=== PATIENT | female | born 1945 | race Caucasian/White ===

== ENCOUNTER → 2021-10-23 13:12 | Outpatient (CLI) | payer MEDICARE, SELFPAY ==
--- NOTE | ~2021-10-23 | US_ITS ---
EXAMINATION: US pelvic limited DATE: 10/23/2021 13:57 INDICATION: Overactive bladder . TECHNIQUE: Grayscale and Doppler ultrasound images of the bladder were obtained. COMPARISON: None. FINDINGS: The bladder is only partially distended. No definite wall thickening, noting that this dete rmination somewhat limited without a fully distended bladder. Prevoid volume 22 mL. Post void volume 0 mL. IMPRESSION: Exam somewhat limited by low starting bladder volume. No post void residual detected. Reviewed, dictated and finalized at location K. IMPRESSION: Exam somewhat limited by low starting bladder volume. No post void residual det ected.
== END ==
PROVIDERS: PCP Family Medicine; Visit Provider Family Medicine
DX: N32.81 Overactive bladder (principal); R36.0 Urethral discharge without blood; B37.89 Other sites of candidiasis; R80.9 Proteinuria, unspecified
CPT/HCPCS: 76857